=== PATIENT | male | born 1930 | race Caucasian/White ===

== ENCOUNTER 2017-09-28 17:54 | Emergency (ER) | payer OTHER ==
[~2017-09-28] VITALS: Ht 175.3 cm; Wt 80.5 kg
[2017-09-28] MEDS ORDERED: PERCOCET 5/31 TABLET PO (20:23)
[2017-09-28 20:55] VITALS: BP 161/80
== END 2017-09-28 20:57 | disposition home or self-care (01) ==
LOC: EME 17:54
DX: S42.032A Displaced fracture of lateral end of left clavicle, initial encounter for closed fracture (principal); S01.81XA Laceration without foreign body of other part of head, initial encounter; W18.30XA Fall on same level, unspecified, initial encounter; Y93.01 Activity, walking, marching and hiking; H91.90 Unspecified hearing loss, unspecified ear
CPT/HCPCS: 70450; 71045; 73030; 99281; 99284